=== PATIENT | male | born 1955 | race Hispanic/Latino ===

== ENCOUNTER → 2019-08-13 | Day surgery (SDC) | payer OTHER ==
[2019-08-11 12:13] LABS: BASOPHILS % 0.3 % (0.0-1.0); EOSINOPHILS # (AUTO) 0.2 (0.0-0.4); EOSINOPHILS % 4.8 % (0.0-6.0); HEMATOCRIT 27.1 % (38.2-49.6); HEMOGLOBIN 8.6 g/dL (14.0-18.0); LYMPHOCYTES # (AUTO) 0.9 (1.0-3.2); LYMPHOCYTES % 22.1 % (18.0-39.1); MEAN CORPUSCULAR HEMOGLOBIN 33.5 pg (28-32); MEAN CORPUSCULAR HGB CONC 31.7 g/dL (31-35); MEAN CORPUSCULAR VOLUME 105.4 fL (81-99); MONOCYTES # (AUTO) 0.4 (0.2-0.8); NEUTROPHILS # (AUTO) 2.5 (2.1-6.9); NEUTROPHILS % 63.5 % (38.7-80.0); PLATELET COUNT 55 x10e3/uL (140-360); RED BLOOD COUNT 2.57 x10e6/uL (4.3-5.7)
[2019-08-11 12:37] LABS: INR 1.78
[2019-08-11 12:38] LABS: PARTIAL THROMBOPLASTIN TIME 42.3 seconds (23.8-35.5)
[2019-08-11 12:47] LABS: ALANINE AMINOTRANSFERASE 23 IU/L (0-55); ALBUMIN 2.4 g/dL (3.5-5.0); ALBUMIN/GLOBULIN RATIO 0.5 (0.8-2.0); ALKALINE PHOSPHATASE 112 IU/L (40-150); ANION GAP 11.1 mmol/L (8-16); BLOOD UREA NITROGEN 5 mg/dL (7-26); BUN/CREATININE RATIO 8 (6-25); CALCIUM 7.9 mg/dL (8.4-10.2); CARBON DIOXIDE 20 mmol/L (22-29); CHLORIDE 108 mmol/L (98-107); CREATININE, SERUM 0.63 mg/dL (0.72-1.25); EST GLOMERULAR FILTRATION RATE > 60 ML/MIN (60-); GLUCOSE 90 mg/dL (74-118); POTASSIUM 4.1 mmol/L (3.5-5.1); SODIUM 135 mmol/L (136-145)
[~2019-08-13] MED LIST: AMLODIPINE BESYL5 MG PO; FUROSEMIDE40 MG PO; LACTULOSE20 GM/30 M PO; MIDAZOLAM HCL 2 MG/2 ML VIAL ONE; OMEPRAZOLE40 MG; PROPOFOL IV EMULSION 10 MG/ML 50 ML VIAL ONE; SPIRONOLACTONE25 MG PO
--- OUTSIDE RECORDS SUMMARY | 2019-08-13 07:23 | XMS REPORT ---
Author [facility] Address Unknown Phone Unavailable Care Team Providers Care Remote Computer Terminal Operator Name Role Phone Unavailable Unavailable Payers Payer Name Policy Type Policy Number Effective Date Expiration Date Problems This patient has no known problems. Allergies, Adverse Reactions, Alerts Allergy Name Allergy Type Status Severity Reaction(s) Onset Date Inactive Date Treating Clinician Comments No Known Allergies DA Active U 2016-08-08 00:00:00 Medications This patient has no known medications. Encounters Start Date/Time End Date/Time Encounter Type Admission Type Attending [facility] Facility Care Department Encounter ID 2019-08-06 00:00:00 2019-08-06 00:00:00 Outpatient [facility] [id number] 2019-07-28 21:22:51 2019-07-28 21:22:51 Emergency [facility] [id number] 2019-07-28 20:12:13 2019-07-28 20:12:13 Emergency [facility] [id number] 2019-04-20 09:43:43 2019-04-20 09:43:43 Outpatient [facility] [id number] 2019-02-26 08:37:54 2019-02-26 08:37:54 Outpatient [facility] [id number] 2019-02-26 00:00:00 2019-02-26 00:00:00 Outpatient [facility] [id number] 2019-01-22 00:00:00 2019-01-22 00:00:00 Outpatient [facility] [id number] 2019-01-09 10:05:16 2019-01-09 10:05:16 Outpatient [facility] [id number] 2019-01-09 00:00:00 2019-01-09 00:00:00 Outpatient [facility] [id number] 2019-01-02 12:42:18 2019-01-02 12:42:18 Outpatient [facility] [id number] 2019-01-02 00:00:00 2019-01-02 00:00:00 Outpatient [facility] [id number] 2018-12-25 08:47:08 2018-12-25 08:47:08 Outpatient [facility] [id number] 2018-12-24 15:10:16 2018-12-24 15:10:16 Outpatient [facility] [id number] 2018-12-24 13:41:59 2018-12-24 13:41:59 Outpatient [facility] [id number] 2018-12-10 13:09:03 2018-12-10 13:09:03 Outpatient [facility] [id number] 2018-12-03 14:30:26 2018-12-03 14:30:26 Outpatient [facility] [id number] 2018-11-17 00:00:00 2018-11-17 00:00:00 Outpatient [facility] [id number] 2018-11-11 00:00:00 2018-11-11 00:00:00 Outpatient [facility] [id number] 2018-11-06 00:00:00 2018-11-06 00:00:00 Outpatient [facility] [id number] 2018-10-30 07:42:10 2018-10-30 07:42:10 Emergency [facility] [id number] 2018-10-30 07:21:07 2018-10-30 07:21:07 Emergency [facility] [id number] 2018-10-30 07:02:47 2018-10-30 07:02:47 Emergency [facility] [id number] 2018-10-30 05:56:30 2018-10-30 05:56:30 Emergency [facility] [id number] 2018-10-28 20:13:00 2018-10-28 20:13:00 Emergency [facility] [id number] 2018-10-17 09:24:48 2018-10-17 09:24:48 Outpatient [facility] [id number] 2018-10-17 09:23:34 2018-10-17 09:23:34 Outpatient [facility] [id number] 2018-10-14 00:00:00 2018-10-14 00:00:00 Outpatient [facility] [id number] 2018-10-07 06:38:15 2018-10-07 06:38:15 Outpatient [facility] [id number] 2018-10-07 00:00:00 2018-10-07 00:00:00 Outpatient [facility] [id number] 2018-10-07 00:00:00 2018-10-07 00:00:00 Outpatient [facility] [id number] 2018-10-03 07:54:03 2018-10-03 07:54:03 Outpatient [facility] [id number] 2018-10-03 07:53:24 2018-10-03 07:53:24 Outpatient [facility] [id number] 2018-09-02 11:28:39 2018-09-02 11:28:39 Outpatient [facility] [id number] 2018-08-25 09:10:42 2018-08-25 09:10:42 Outpatient [facility] [id number] 2018-08-11 06:40:55 2018-08-11 06:40:55 Outpatient [facility] [id number] 2018-08-11 00:00:00 2018-08-11 00:00:00 Outpatient [facility] [id number] 2018-08-11 00:00:00 2018-08-11 00:00:00 Outpatient [facility] [id number] 2018-08-04 10:22:58 2018-08-04 10:22:58 Outpatient [facility] [id number] 2018-08-04 00:00:00 2018-08-04 00:00:00 Outpatient [facility] [id number] 2018-07-31 07:43:19 2018-07-31 07:43:19 Outpatient [facility] [id number] 2018-07-31 00:00:00 2018-07-31 00:00:00 Outpatient [facility] [id number] 2018-07-30 00:00:00 2018-07-30 00:00:00 Outpatient [facility] [id number] 2018-07-30 00:00:00 2018-07-30 00:00:00 Outpatient [facility] [id number] 2018-07-24 00:00:00 2018-07-24 00:00:00 Outpatient [facility] [id number] 2018-07-08 09:26:05 2018-07-08 09:26:05 Outpatient [facility] [id number] 2018-06-20 10:32:09 2018-06-20 10:32:09 Outpatient [facility] [id number] 2018-06-03 00:00:00 2018-06-03 00:00:00 Outpatient [facility] [id number] 2018-04-01 13:19:07 2018-04-01 13:19:07 Outpatient [facility] [id number] 2018-03-28 10:25:29 2018-03-28 10:25:29 Outpatient [facility] [id number] 2018-03-28 00:00:00 2018-03-28 00:00:00 Outpatient [facility] [id number] 2018-01-04 11:44:11 2018-01-04 11:44:11 Emergency [facility] [id number] Results Test Description Test Time Test Comments Text Results Atomic Results Result Comments GLUBED 2018-11-04 21:07:00 GLUBED (test code=GLUBED) 121 mg/dL 74-106 Performed by certified straightening machine operator at [facility] URINALYSIS [id number] 20:28:00* Test Item Value Reference Range Comments UA COLOR (test code=COLU) NEENA YELLOW UA APPEARANCE (test code=APPU) CLEAR CLEAR UA GLUCOSE DIPSTICK (test code=DGLUU) NEGATIVE mg/dL NEGATIVE UA BILIRUBIN DIPSTICK (test code=BILU) NEGATIVE mg/dL NEGATIVE UA KETONE DIPSTICK (test code=KETU) NEGATIVE mg/dL NEGATIVE UA SPECIFIC GRAVITY (test code=SGU) 1.025 1.001-1.035 UA BLOOD DIPSTICK (test code=TORI) 0.5 mg/dL (2+) mg/dL NEGATIVE UA PH DIPSTICK (test code=SINAI) 6.0 5.0-8.0 UA PROTEIN DIPSTICK (test code=PROU) 20 (Trace) mg/dL NEGATIVE UA UROBILINIOGEN DIPSTICK (test code=URO) 6.0 (2+) mg/dL NEGATIVE UA NITRITE DIPSTICK (test code=CANDY) NEGATIVE NEGATIVE UA LEUKOCYTE ESTERASE W REFLEX (test code=LEUUR) NEGATIVE Mihai/uL NEGATIVE UA WBC (test code=WBCU) 0-5 per HPF 0-5 UA RBC (test code=RBCU) 11-20 #/HPF 0-5 UA EPITHELIAL CELLS (test code=EPIU) FEW per HPF FEW UA BACTERIA (test code=BACU) FEW #/HPF NONE UA HYALINE CAST (test code=HYALU) 3-5 #/LPF 0-5 UA MUCUS (test code=MUCU) FEW #/LPF FEW Urine Source? Clean CatchBASIC METABOLIC [id number] 17:06:00* Test Item Value Reference Range Comments SODIUM (test code=NA) 131 mmol/L 136-145 POTASSIUM (test code=K) 5.1 mmol/L 3.5-5.1 CHLORIDE (test code=CL) 101.0 mmol/L 98-107 CARBON DIOXIDE (test code=CO2) 24.0 mmol/L 21-32 ANION GAP (test code=GAP) 11.1 10-20 GLUCOSE (test code=GLU) 145 mg/dL 74-106 BLOOD UREA NITROGEN (test code=BUN) 16 mg/dL 7-18 GLOMERULAR FILTRATION RATE (test code=GFR) > 60 mL/min >=60 Estimated GFR by using Modified MDRD formula.Chronic kidney disease is defined as either kidney damageor GFR <60 mL/min/1.73 m2 for >3 months. CREATININE (test code=CREAT) 0.70 mg/dL 0.7-1.3 BUN/CREATININE RATIO (test code=BUN/CREA) 22.9 10-20 CALCIUM (test code=CA) 6.9 mg/dL 8.5-10.1 [id number] 17:06:00* Test Item Value Reference Range Comments TROPONIN-I (test code=TROPI) <0.015 ng/mL 0-0.045 BASIC METABOLIC [id number] 16:59:00* Test Item Value Reference Range Comments SODIUM (test code=NA) 131 mmol/L 136-145 POTASSIUM (test code=K) 5.1 mmol/L 3.5-5.1 CHLORIDE (test code=CL) 101.0 mmol/L 98-107 CARBON DIOXIDE (test code=CO2) mmol/L 21-32 ANION GAP (test code=GAP) 10-20 GLUCOSE (test code=GLU) mg/dL 74-106 BLOOD UREA NITROGEN (test code=BUN) mg/dL 7-18 GLOMERULAR FILTRATION RATE (test code=GFR) mL/min >=60 CREATININE (test code=CREAT) mg/dL 0.7-1.3 BUN/CREATININE RATIO (test code=BUN/CREA) 10-20 CALCIUM (test code=CA) mg/dL 8.5-10.1 [id number] 16:59:00* Test Item Value Reference Range Comments TROPONIN-I (test code=TROPI) ng/mL 0-0.045 CBC W/O [id number] 16:55:00* Test Item Value Reference Range Comments WHITE BLOOD CELL (test code=WBC) 16.4 K/mm3 4.5-12.5 RED BLOOD CELL (test code=RBC) 3.48 mill/mm3 4.0-5.8 HEMOGLOBIN (test code=HGB) 12.0 gram/dL 13.0-17.5 HEMATOCRIT (test code=HCT) 37.0 % 42.0-52.0 MEAN CELL VOLUME (test code=MCV) 106.3 fL 80-98 MEAN CELL HGB (test code=MCH) 34.5 picogram 27.0-33.0 MEAN CELL HGB CONCETRATION (test code=MCHC) 32.4 gram/dL 33.0-36.0 RED CELL DISTRIBUTION WIDTH (test code=RDW) 17.8 % 11.6-16.2 PLATELET COUNT (test code=PLT) 123 K/mm3 150-450 MEAN PLATELET VOLUME (test code=MPV) 9.2 fL 6.7-11.0 - CT PELVIS W/O [id number] 16:53:00 Name: SUSANA PADRON [facility] : 1955 Age/S: 63 / M [address] [facility] Unit #: [id number] Loc: [place] [address] Phys: Kareem Wisdom DO Acct: [id number] Dis Date: Status: REG ER PHONE #: [phone] Exam Date: 11/04/2018 1647 FAX #: [phone] Reason: pain fall EXAMS: CPT CODE: [id number] CT PELVIS W/O CONTRAST [id number] REASON FOR EXAM: pain fall EXAM ORDER DATE: 11/04/2018 4:08 PM Ordering MNicole: Kareem Wisdom DO PROCEDURE: - CT PELVIS W/O CONTRAST COMPARISON: FINDINGS: CT images of the pelvis were obtained without IV and without oral contrast at 5mm. Dose modulation, iterative reconstruction, and/or weight based adjustment of the MA/KV was utilized to reduce the radiation dose to as low as reasonably achievable. The urinary bladder is unremarkable. The colon, small bowel, and stomach are within normal limits without evidence of obstruction. No evidence of free air . IMPRESSION: No evidence of pelvic ring or hip fracture. [id number] ascites at 1653 Reported and signed by: Pasha Reeves M.D. CC: Andrew Milner MD; Kareem Wisdom DO Technologist:Lise Vega RT(R) CTDI: DLP: Trnscb Date/Time: 11/04/2018 (2110) [email or web address] Orig Print D/T: S: 11/04/2018 (7458) PAGE 1 Signed Report
[2019-08-13 10:19] VITALS: BP 138/69
== END | disposition home or self-care (01) ==
LOC: OR 07:21
PROVIDERS: ATTEND Internal Medicine Gastroenterology
DX: K70.30 Alcoholic cirrhosis of liver without ascites (principal); I85.10 Secondary esophageal varices without bleeding; K76.6 Portal hypertension; K29.50 Unspecified chronic gastritis without bleeding; I10 Essential (primary) hypertension; D64.9 Anemia, unspecified; Z68.25 Body mass index [BMI] 25.0-25.9, adult; E66.3 Overweight; Z71.3 Dietary counseling and surveillance; Z01.810 Encounter for preprocedural cardiovascular examination; Z01.812 Encounter for preprocedural laboratory examination
CPT/HCPCS: 36415; 43235; 80053; 85025; 85610; 85730; 93005; J2250; J2704